=== PATIENT | male | born 1990 | race Caucasian/White ===

== ENCOUNTER 2018-04-09 15:44 | Emergency (ER) | payer OTHER ==
[~2018-04-09] VITALS: Ht 182.9 cm; Wt 83.9 kg
[2018-04-09] MEDS ORDERED: KETOROLAC TROMETHAMINE 30 MG INJ IM ONE (16:30)
[2018-04-09] MEDS ORDERED: ONDANSETRON ODT 4 MG TAB.RAPDIS SL ONE (16:30)
[2018-04-09] MEDS ORDERED: ONDANSETRON ODT 4 MG TAB.RAPDIS ONE (16:32)
[2018-04-09] MEDS ORDERED: KETOROLAC TROMETHAMINE 30 MG INJ ONE (16:32)
--- NOTE | 2018-04-09 16:39 | NUR ---
Patient discharged to home in stable conditon. Written and verbal after care instructions given. Patient verbalizes understanding of instructions.
== END 2018-04-09 16:40 | disposition home or self-care (01) ==
LOC: ER 15:44
DX: F41.9 Anxiety disorder, unspecified (principal); R51 Headache; R20.2 Paresthesia of skin
CPT/HCPCS: 71045; 93005; 96372; 99284; J1885; A4663; Q0162

== ENCOUNTER 2018-12-05 22:07 | Emergency (ER) | payer OTHER ==
[~2018-12-05] VITALS: Ht 182.9 cm; Wt 97.5 kg
[2018-12-05] MEDS ORDERED: HYDROMORPHONE 1 MG/1 ML DISP.SYRIN ONE (22:58)
[2018-12-05] MEDS ORDERED: KETOROLAC TROMETHAMINE 30 MG INJ ONE (22:58)
[2018-12-05] MEDS ORDERED: IV NORMAL SALINE 1000 ML BAG IV ONE (23:00)
[2018-12-05] MEDS ORDERED: HYDROMORPHONE 1 MG/1 ML DISP.SYRIN IV ONE (23:00)
[2018-12-05] MEDS ORDERED: KETOROLAC TROMETHAMINE 30 MG INJ IVP ONE (23:00)
--- NOTE | 2018-12-06 00:03 | NUR ---
Patient discharged to home in stable conditon. Written and verbal after care instructions given. Patient verbalizes understanding of instructions. Pt ambulated out of ER with steady gait, no acute signs of distress, VSS, all belongings taken, IV site discontinued.
[2018-12-06 00:04] VITALS: BP 111/74
== END 2018-12-06 00:05 | disposition home or self-care (01) ==
LOC: ER 22:11
DX: M54.41 Lumbago with sciatica, right side (principal); F41.9 Anxiety disorder, unspecified; Z90.49 Acquired absence of other specified parts of digestive tract
CPT/HCPCS: 96374; 96375; 99283; J1170; J1885; A4663; J7030

== ENCOUNTER 2019-07-18 19:04 | Emergency (ER) | payer OTHER ==
[~2019-07-18] VITALS: Ht 182.9 cm; Wt 86.2 kg
[2019-07-18] MEDS ORDERED: HYDR-4354 PO (19:13)
[2019-07-18] MEDS ORDERED: IBUP-1955 PO (19:13)
--- NOTE | 2019-07-18 19:27 | NUR ---
Dr. Durant at bedside for MSE
[2019-07-18] MEDS ORDERED: CYCLOBENZAPRINE HCL 10 MG TABLET ONE (19:40)
[2019-07-18] MEDS ORDERED: KETOROLAC TROMETHAMINE 60 MG INJ IM ONE ×2 (19:40→19:45)
[2019-07-18] MEDS ORDERED: HYDROCODONE/APAP 10-325 MG TABLET ONE (19:41)
[2019-07-18] MEDS ORDERED: CYCLOBENZAPRINE HCL 10 MG TABLET PO ONE (19:45)
[2019-07-18] MEDS ORDERED: HYDROCODONE/APAP 10-325 MG TABLET PO ONE (19:45)
--- NOTE | 2019-07-18 20:03 | NUR ---
Patient discharged to home in stable condition. Written and verbal after care instructions given. Patient verbalizes understanding of instructions. Stressed follow up or return to ER for worsening s/s. Patient ambulating with steady gait. A&Ox4. NAD noted. Instructed patient not to drive. Patient seen walking out of ED to [facility] ride home
[2019-07-18 20:34] VITALS: BP 128/72
== END 2019-07-18 20:03 | disposition home or self-care (01) ==
LOC: ER 19:04
DX: G89.29 Other chronic pain (principal); M54.5 Low back pain
CPT/HCPCS: 96372; 99283; J1885; A4663

== ENCOUNTER 2019-07-21 09:46 | Emergency (ER) | payer OTHER ==
[~2019-07-21] VITALS: Ht 182.9 cm; Wt 86.2 kg
[~2019-07-21 09:46] MED LIST: HYDR-4354 PO; IBUP-1955 PO
[2019-07-21] MEDS ORDERED: KETOROLAC TROMETHAMINE 30 MG INJ ONE (10:38)
[2019-07-21] MEDS ORDERED: HYDROCODONE/APAP 5-325MG TABLET ONE (10:38)
[2019-07-21] MEDS ORDERED: OXYCODONE/APAP 5-325 MG TABLET ONE (10:41)
[2019-07-21] MEDS ORDERED: OXYCODONE/APAP 5-325 MG TABLET PO ONE (10:45)
[2019-07-21] MEDS ORDERED: KETOROLAC TROMETHAMINE 30 MG INJ IM ONE (10:45)
--- NOTE | 2019-07-21 11:18 | NUR ---
Patient discharged to home in stable condition. Written and verbal after care instructions given. Patient verbalizes understanding of instructions. pt waks in steady gait.Stressed follow up or return to ER for worsening s/s.
== END 2019-07-21 11:19 | disposition home or self-care (01) ==
LOC: ER 09:46
DX: G89.21 Chronic pain due to trauma (principal); M54.5 Low back pain; V89.2XXS Person injured in unspecified motor-vehicle accident, traffic, sequela
CPT/HCPCS: 96372; 99283; J1885; A4663

== ENCOUNTER 2019-07-23 20:21 | Emergency (ER) | payer OTHER ==
[~2019-07-23] VITALS: Ht 182.9 cm; Wt 86.2 kg
--- NOTE | 2019-07-23 21:00 | NUR ---
PATIENT WAS MSE BY DR HIRSCH IN ROOM 04B.
[2019-07-23] MEDS ORDERED: OXYCODONE/APAP 5-325 MG TABLET ONE (21:09)
[2019-07-23] MEDS ORDERED: HYDROCODONE/APAP 5-325MG TABLET ONE (21:11)
[2019-07-23] MEDS ORDERED: HYDROCODONE/APAP 5-325MG TABLET PO ONE (21:15)
--- NOTE | 2019-07-23 21:15 | NUR ---
Patient discharged to home in stable condition. Written and verbal after care instructions given. Patient verbalizes understanding of instructions. Stressed follow up or return to ER for worsening s/s.
[2019-07-23 21:20] VITALS: BP 121/68
== END 2019-07-23 21:20 | disposition home or self-care (01) ==
LOC: ER 20:23
DX: M54.5 Low back pain (principal); G89.21 Chronic pain due to trauma; T14.90XS Injury, unspecified, sequela; V49.9XXS Car occupant (driver) (passenger) injured in unspecified traffic accident, sequela
CPT/HCPCS: A4663

== ENCOUNTER 2020-01-02 13:05 | Emergency (ER) | payer OTHER ==
[~2020-01-02] VITALS: Ht 182.9 cm; Wt 86.2 kg
[2020-01-02] MEDS ORDERED: CEFTRIAXONE 500 MG VIAL IM ONE (13:30)
[2020-01-02] MEDS ORDERED: METRONIDAZOLE 500 MG TABLET PO ONE (13:30)
[2020-01-02] MEDS ORDERED: LIDOCAINE HCL 1% 20 ML VIAL ONE (13:33)
[2020-01-02] MEDS ORDERED: CEFTRIAXONE 500 MG VIAL ONE (13:34)
[2020-01-02] MEDS ORDERED: METRONIDAZOLE 500 MG TABLET ONE (13:34)
[2020-01-03 12:06] LABS: HEPATITIS B SURFACE AB Reactive (.)
== END 2020-01-02 14:05 | disposition home or self-care (01) ==
LOC: ER 13:07
DX: Z11.3 Encounter for screening for infections with a predominantly sexual mode of transmission (principal)
CPT/HCPCS: 36415; 86592; 86706; 86803; 87536; 96372; 99283; J0696; J3490; A4663

== ENCOUNTER 2021-04-14 12:44 | Emergency (ER) | payer SELFPAY ==
[~2021-04-14] VITALS: Ht 182.9 cm; Wt 86.2 kg
[2021-04-14] MEDS ORDERED: KETOROLAC TROMETHAMINE 15 MG INJ IM ONE (13:15)
[2021-04-14] MEDS ORDERED: HYDROCODONE/APAP 5-325MG TABLET PO ONE (13:15)
[2021-04-14] MEDS ORDERED: KETOROLAC TROMETHAMINE 15 MG INJ ONE (13:26)
[2021-04-14] MEDS ORDERED: HYDROCODONE/APAP 5-325MG TABLET ONE (13:26)
[2021-04-14] MEDS ORDERED: IBUP-1953 PO (13:56)
[2021-04-14] MEDS ORDERED: GABA-532 PO (13:56)
[2021-04-14] MEDS ORDERED: ACET-73 PO (13:56)
[2021-04-14] MEDS ORDERED: DICL100G31 TP (13:56)
[2021-04-14 14:02] VITALS: BP 119/71
== END 2021-04-14 14:02 | disposition home or self-care (01) ==
LOC: ER 12:44
DX: M54.41 Lumbago with sciatica, right side (principal); G89.29 Other chronic pain
CPT/HCPCS: 96372; 99283; J1885; A4663